=== PATIENT | female | born 1930 | race Caucasian/White ===

== ENCOUNTER 2016-12-19 12:13 | Inpatient (IN) | payer MEDICARE, OTHER ==
[~2016-12-19] VITALS: Ht 152.4 cm; Wt 79.7 kg
[~2016-12-19 12:13] MED LIST: AMLO5TAB2 PO; APIX5TAB PO; ATOR80TA PO; FUR20 PO; HYDR-4003 PO; LEVO750T39 PO; LISI-567 PO; LORA-302 PO; METF500T4 PO; METO100T3 PO; SITA50TA PO
[2016-12-20 08:17] VITALS: BP 115/67; PULSE 69; RESP 16; O2SAT 98
[2016-12-20 08:22] VITALS: PULSE 32
[2016-12-20] MEDS ORDERED: Polyethylene Glycol (PEG) 17 Gm Powder PO PRN (08:55)
[2016-12-20] MEDS ORDERED: Ondansetron 2 mg/mL 2 mL Inj IVPUSH PRN (08:55)
[2016-12-20] MEDS ORDERED: Alum-Mag Hydrox-Simeth 30 mL Suspension PO PRN (08:55)
[2016-12-20] MEDS ORDERED: Glucose 40% Oral Gel 15 Gm Tube PO PRN (09:10)
[2016-12-20] MEDS ORDERED: LORazepam 0.5 mg Tablet PO PRN (09:10)
--- NOTE | 2016-12-20 10:26 | HP ---
[address] [address] HISTORY AND PHYSICAL PATIENT: CLARISSA HERBERT : 1930 MR#: [id number] ADMIT: 12/20/2016 JOB ID: [id number] CHIEF COMPLAINT: Paroxysmal AFib with increasing AFib burden. 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 In terms of paroxysmal AFib, she has been unable to tolerate amiodarone in the past due to hyperthyroidism. She is on Eliquis and metoprolol tartrate 100 mg twice a day for stroke prevention. While on amiodarone, her AFib burden was 2% but lately, it has been steadily rising, was most recently 16% on her most recent device check. Generally, rate during AFib was controlled. Lately, she recalls experiencing some palpitations but no chest pain or chest pressure. She has asymptomatic aortic stenosis. Most recent echocardiogram April 24, 2016, showed worsening compared to prior study April 2015. Peak velocity stable around 4 m/sec. Mean gradient alon from 34 mmHg to 40 mmHg, and there was associated moderate posterolaterally directed mitral regurgitation. We had a nice conversation with her two daughters on December 17, 2016, to discuss the increased AFib burden and worsening symptoms. Also, if her aortic stenosis progresses, AFib is likely going to be worse and worse tolerated. After detailed conversation about risks, benefits and alternatives, we made the decision to proceed with sotalol load, and she is here today for her elective 72-hour monitoring. PAST MEDICAL HISTORY: 1. Paroxysmal AFib. 2. Tachybrady syndrome, status post dual-chamber permanent pacemaker implanted March 19, 2011. 3. Diabetes -- controlled. Most recent A1c 6.3% as of September 2016. 4. Hyperlipidemia -- controlled. Most recent total cholesterol September 2016, showed total cholesterol 156, triglycerides 115, HDL 70 and LDL 59. 5. Severe aortic stenosis -- asymptomatic. 6. Hyperthyroidism -- resolved after amiodarone was discontinued. 7. History of remote TIA in 2003. 8. Osteoarthritis. 9. 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 FAMILY HISTORY: Father of stroke at age 85. Mother of heart attack at age 87. She has eight children but one at age 19 from cancer. SOCIAL HISTORY: She is a lifetime nonsmoker. She is accompanied by her daughter today to clinic. ALLERGIES: PENICILLIN. HOME MEDICATIONS: 1. Lipitor 80 mg daily. 2. Metoprolol tartrate 200 mg twice a day. 3. Lisinopril 10 mg twice a day. 4. Lasix 20 mg daily. 5. Eliquis 5 mg twice a day. 6. Ativan 0.5 mg twice a day if needed for anxiety. 7. Amlodipine 10 mg daily. 8. Januvia 50 mg daily. 9. Metformin 500 mg in the morning, 200 mg at night. REVIEW OF SYSTEMS: She denies any bright red blood per rectum or hematuria. She reports fatigue, irregular heartbeat and anxiety. Otherwise, 10-point review of systems is negative. PHYSICAL EXAMINATION: Vital signs: Temperature 36.4, blood pressure 115/67, pulse 98% on room air. Very nice 86-year-old lady in no apparent distress. Eyes: No scleral icterus. Heart: Normal S1, S2. A 3/6 systolic ejection murmur at upper sternal border. Lungs: Clear anteriorly. Abdomen: Soft, positive bowel sounds. No hepatosplenomegaly. Extremities: Warm, well perfused. No clubbing, cyanosis, or edema. Skin: No rashes or lesions. LABORATORIES: Ordered and pending. Chest x-ray ordered and pending. EKG ordered and pending. Most recent outpatient CBC was in November 2015, and at that time it was normal. ASSESSMENT AND PLAN: This is a delightful 86-year-old woman with moderate aortic stenosis. She has progressive atrial fibrillation burden. She has been in atrial fibrillation on last device check for four days continuously which is unusual for her. Will go ahead and admit her for sotalol load and if needed, we can certainly cardiovert her if she remains in atrial fibrillation at the time of discharge. I think it is really important to try to keep her away from atrial fibrillation as much as possible, given progressive aortic stenosis. The patient voiced understanding. I ordered all of her home meds but I reduced her metoprolol tartrate from 200 mg twice a day to 100 mg twice a day. I also changed her metformin from 500 mg in the morning and 250 at night to just 500 mg once a day.
[2016-12-20 11:03] LABS: BASOPHILS % (AUTO) 0.3 % (0-3); EOSINOPHILS % (AUTO) 0.8 % (0-5); MONOCYTES % (AUTO) 10.3 % (4-12); Mean Corpuscular Hemoglobin 29.8 pg (27.0-35.0); Mean Corpuscular Volume 90.5 fL (81-100); NEUTROPHILS % (AUTO) 67.9 % (40-74); Platelet Count 286 bil/L (150-400)
--- NOTE | 2016-12-20 11:15 | DRSVH ---
PROCEDURE: X-RAY CHEST, TWO VIEWS ([id number]) INDICATIONS: afib TECHNIQUE: 2 views of the chest were acquired. COMPARISON: None. FINDINGS: Surgical changes and devices: Stable positioning of left cardiac pacer. Cholecystectomy clips. Lungs and pleura: No pleural effusions or pneumothorax. Lungs are clear. Hiatal hernia redemonstra joaquin. Lung volumes are increased with flattening of the hemidiaphragms suggesting COPD. Mediastinum: Mediastinal contours are normal. Heart size is enlarged. Bones and chest wall: No suspicious bony abnormalities. Soft tissues appear unremarkable. IMPRESSION: Lung volumes are increased suggesting COPD, correlate with pulmonary functions test. Dictated by: Beka Arguelles RRA Interpreted: Katherine Cedeno MD on 12/20/2016 at 11:14 Transcribed by: MERCEDES on 12/20/2016 at 11:15 Approved by: Katherine Cedeno MD, PhD on 12/20/2016 at 16:48
[2016-12-20 11:25] LABS: Magnesium 2.1 mg/dL (1.6-2.6)
[2016-12-20 11:43] LABS: APPEARANCE,URINE HAZY (CLEAR,HAZY); COLOR,URINE STRAW (YELLOW); OCCULT BLOOD,URINE TRACE (NEGATIVE); UROBILINOGEN,URINE NORMAL (NORMAL)
[2016-12-20] MEDS: Insulin LISPRO 300 Unit/3 mL Inj SUBQ SCH ×3 (12:00→22:30)
[2016-12-20 12:02] VITALS: BP 110/56; PULSE 73; RESP 16; O2SAT 99
[2016-12-20 16:48] VITALS: BP 105/64; PULSE 69; RESP 16; O2SAT 98
--- NOTE | 2016-12-20 18:09 | NUR ---
Arrived to unit/Sotalol Pt arrived to [facility] room 2021 at ~0810 direct admit for Sotalol loading, Dr. Funk made aware of Pt's arrival. Pt denied pain, A&Ox3. Pt received first dose of Sotalol after baseline EKG acquired and QTc 427. EKG ordered for 2 hours after am dose given, f/u EKG showed a QTc of 437.
[2016-12-20 20:08] VITALS: BP 101/63; PULSE 63; RESP 17; O2SAT 97
[2016-12-21] VITALS (9 sets, daily range): BP systolic 108–138; BP diastolic 58–74; PULSE 60–63; RESP 16–20; O2SAT 90–99
--- NOTE | 2016-12-21 04:44 | NUR ---
Tele, Sotalol Vs as noted. Tele V paced with hr 60-70. Sotalol with follow up EKG QTc 0.439. Denies chest pain or discomforts. Up independently.
[2016-12-21] MEDS: Insulin LISPRO 300 Unit/3 mL Inj SUBQ SCH ×4 (08:00→19:49)
--- NOTE | 2016-12-21 12:34 | PROG NOTE ---
[address] [address] PROGRESS NOTE PATIENT: CLARISSA HERBERT : 1930 MR#: [id number] ADMIT: 12/20/2016 JOB ID: [id number] DATE: 12/21/2016 CHIEF COMPLAINT: Episodic palpitations from atrial fibrillation. SUBJECTIVE: The patient is a delightful 86-year-old woman with a history of paroxysmal atrial fibrillation and tachycardia/bradycardia syndrome who has been treated previously with amiodarone and a dual-chamber cardiac pacemaker. She is also known to have severe but asymptomatic aortic stenosis, hypertension, hyperlipidemia and diabetes. When amiodarone led to hyperthyroidism, it was stopped and her atrial fib burden, as identified by her pacemaker, gradually increased from 2% up to 16%. She was admitted yesterday for starting sotalol for treatment of atrial fibrillation. On admission, she was in atrial fibrillation with ECG showing ventricular pacing. The atrial fib self-terminated sometime after the second dose of sotalol. This morning she has no complaints and has been ambulatory without difficulty. She denies shortness of breath, lightheadedness, or chest discomfort. OBJECTIVE: Pertinent lab data from yesterday showed potassium 4.8, creatinine 0.99 and magnesium 2.1. Her baseline ECG prior to sotalol showed ventricular pacing mixed with conducted ventricular rhythm during atrial fibrillation, average rate 73 bpm, QT 387 msec and QTc 427 msec. This morning 2 hours after her third dose of sotalol she is in sinus rhythm with atrial pacing and conduction to the ventricles. The rate is 62, QT 417 and QTc 424 msec. Vital signs: BP 122/63, pulse 61, pulse oximetry 98% on room air. Brief physical exam, she is alert and appropriate in conversation, pulse rhythm is regular and the 3/6 systolic ejection murmur remains present. Breath sounds are clear, abdomen with positive bowel sounds and no tenderness, extremities are warm, pulses intact and there is no edema or rashes. ASSESSMENT AND PLAN: The patient is tolerating the sotalol at 80 mg b.i.d. well. She has returned to sinus rhythm, and her QT interval is essentially unchanged from that prior to sotalol. She denies any side effects from the medication. The plan will be to continue sotalol 80 mg b.i.d. with 12-lead ECG recorded 2 hours after each dose. We will anticipate discharging her home tomorrow morning around noon after the fifth dose of sotalol and the ECG.
--- NOTE | 2016-12-21 13:51 | NUR ---
Social work note - Initial assessment Nalini Berger is a 86 yr old who was admitted under cardiology for Sotalol loading. EMR reviewed: Pt has Medicare and [employer] insurance. Her PCP is Dr Benitez. Readmit score is high 4/8 P's. See attached CM initial assessment. MEDICINE MAN met with pt - introduced d/c planning and explained SW role. Pt lives at home with her daughter in [place]. She is independent at baseline. Uses a 4[employer], does not drive. She states that her daughter Velvet Michelle is her DPOA - [phone]. No DPOA in chart. MEDICINE MAN provided education about importance of bringing in paperwork - Pt states she will ask family to bring it in. Pt states she plans to d/c home with family. No previous services, denies any needs. Pt is up independent in room and IADL. MEDICINE MAN will follow if needs arise. Plan: Home with family in [facility]. DAWIT Hooker Addendum: 12/21/16 at 1356 by CLAIRE PABLO SS Amended: Links added.
--- NOTE | 2016-12-21 19:17 | NUR ---
Sotalol Pt reports no changes in how she feels since admit, Sotalol dose given this am at ~0900 and EKG obtained ~2 hours after dose administered, QTc 424 on EKG reading, SELVIN Dallas viewed EKG reading, care ongoing.
--- NOTE | 2016-12-21 22:46 | NUR ---
SOTALOL LOADING/EKG Pt A&Ox3, able to make needs known, indep. in the room with walker, no pain. Pt was given 80mg Sotalol, 2 hours post medication an EKG was done, QTc 458, orders to notify MD if over 500. Rate 60, atrial-paced rhythm, left ventricular hypertrophy. No other issues noted at this time.
[2016-12-22 03:07] VITALS: BP 120/67; PULSE 55; RESP 20; O2SAT 93
[2016-12-22 06:10] VITALS: PULSE 62
[2016-12-22] MEDS: Insulin LISPRO 300 Unit/3 mL Inj SUBQ SCH (08:00)
[2016-12-22 08:57] VITALS: BP 137/72; PULSE 60; RESP 16; O2SAT 98
[2016-12-22 10:17] VITALS: PULSE 61
--- NOTE | 2016-12-22 11:32 | PCM.DIMED ---
Discharge Instructions Date of Service Dec 22, 2016 Dates of Hospitalization Dec 20, 2016 at 08:12 Discharge Diagnosis Discharge Diagnosis Paroxysmal Atrial Fibrillation Tachycardia / Bradycardia Syndrome Dual Chamber Pacemaker Severe but asymptomatic Aortic Stenosis Hypertension Diabetes Diet Heart Healthy, Diabetic Activity No restrictions Call your provider Other (Fainting or near fainting) Patient Instructions Provider: Samia Funk MD Follow-up in: 6 weeks (Please call the [facility] Cardiology office at [phone] to make the appointment.) Darrius Dallas PA-C Dec 22, 2016 11:32
[2016-12-22] MEDS ORDERED: BET80 PO (11:50)
[2016-12-22] MEDS ORDERED: METO100T3 PO (11:50)
--- NOTE | 2016-12-22 13:32 | NUR ---
Discharge Pt discharge to home after Sotalol dose and f/u EKG today. Pt left with family at ~1240. Pt given discharge educational materials on Sotalol. Pt's IV access D/C'd and intact. Pt instructed to call cardiology for f/u appointment tomorrow, phone number supplied. Pt verbalized understanding of all discharge instructions. All belongings accompanied Pt at time of discharge.
--- NOTE | 2016-12-22 19:26 | DIS ---
[address] [address] DISCHARGE SUMMARY PATIENT: CLARISSA HERBERT : 1930 MR#: [id number] ADMIT: 12/20/2016 JOB ID: [id number] DIS: 12/22/2016 CHIEF COMPLAINT: Palpitations from atrial fibrillation. BRIEF HISTORY: This is a delightful 86-year-old woman with a history of paroxysmal atrial fibrillation and tachycardia bradycardia syndrome who currently has a dual-chamber cardiac pacemaker. She had been treated with amiodarone for some time but became hyperthyroid and amiodarone was stopped. Her symptoms of atrial fibrillation as measured by the pacemaker increased from 2% up to 16%, and she has been more symptomatic, of course. She was admitted for antiarrhythmic therapy with sotalol for atrial fibrillation. COURSE IN HOSPITAL: The patient was admitted to the [facility] and after baseline ECG and lab data were obtained she was started on sotalol 80 mg b.i.d. After the second dose of sotalol, she converted spontaneously from atrial fibrillation back to sinus rhythm and has been receiving atrial pacing. She has tolerated the new medication well and has no complaints of any side effects of fatigue or GI upset or lightheadedness. Her QT and QTc intervals have remained within the 15% increase allowable with sotalol. She has not had any complex ventricular ectopy or nonsustained VT on the cardiac cardiac monitor technician. She feels well for discharge home. DISPOSITION: The patient was discharged home in good condition with a followup appointment at the [facility] cardiology office with Dr. Funk in one month. She will have no activity restrictions and will continue her heart healthy and diabetic diet. DISCHARGE MEDICATIONS: 1. Amlodipine 5 mg daily. 2. Eliquis 5 mg b.i.d. 3. Lipitor 80 mg q.h.s. 4. Furosemide 20 mg daily. 5. Lisinopril 10 mg b.i.d. 6. Lorazepam 0.5 mg b.i.d. p.r.n. 7. Metformin 500 mg daily. 8. Metoprolol tartrate, dose now reduced to 100 mg b.i.d. 9. Sitagliptin 50 mg daily. 10. Sotalol 80 mg b.i.d. FINAL DIAGNOSES: 1. Paroxysmal atrial fibrillation. 2. Tachycardia/bradycardia syndrome. 3. Dual-chamber cardiac pacemaker. 4. Severe, asymptomatic aortic stenosis. 5. Hypertension. 6. Diabetes.
== END 2016-12-22 13:30 | disposition home or self-care (01) | DRG 310 ==
LOC: PCC 12-20 08:12
PROVIDERS: ADMIT Internal Medicine; ATTEND Internal Medicine
DX: I48.0 Paroxysmal atrial fibrillation (principal); Z95.0 Presence of cardiac pacemaker; I35.0 Nonrheumatic aortic (valve) stenosis; Z86.73 Personal history of transient ischemic attack (TIA), and cerebral infarction without residual deficits

== ENCOUNTER → 2017-08-06 | Day surgery (SDC) | payer MEDICARE, OTHER ==
[2017-08-06] VITALS (13 sets, daily range): BP systolic 109–126; BP diastolic 40–71; PULSE 60; RESP 12–19; O2SAT 93–96
[~2017-08-06] VITALS: Ht 152.4 cm; Wt 76.0 kg
[~2017-08-06] MED LIST changes: +0.9% Sodium Chloride 1,000 ML IV SCH; +0.9% Sodium Chloride 250 ML IV PRN; +AMLO10TA3 PO; -AMLO5TAB2 PO; +Atropine 1 mg/10 mL (Code) Syringe IVPUSH PRN; -HYDR-4003 PO; +HYDROcodone-APAP 5-325 mg Tablet PO PRN; +Heparin 1,000 Unit/mL 10 mL Inj ONE; +Heparin 1,000 Units/500 mL NS Premix IV ONE; +Heparin 10,000 Unit/1,000 mL NS Premix IV ONE; -LEVO750T39 PO; +Ondansetron 2 mg/mL 2 mL Inj IVPUSH PRN; +SOTA80TA PO; +fentaNYL-PF 50 mCg/mL 2 mL Inj ONE
--- NOTE | 2017-08-06 15:26 | NUR ---
Post Cath: Received pt from cardiac cath lab technologist to [facility] bed 8 at 1455. R groin gauze dressing C/D/I, no c/o pain, VSS on RA. Tolerating po intake. Pt's daughters at bedside. R pedal pulse palpable +2. Pt states understanding of post procedure bedrest restrictions.
--- NOTE | 2017-08-06 15:50 | CS94 ---
[address] [address] DIAGNOSTIC CARDIAC CATHETERIZATION PATIENT: CLARISSA HERBERT : 1930 MR#: [id number] ADMIT: 08/06/2017 JOB ID: [id number] SERVICE DATE: 08/06/2017 CHIEF COMPLAINT: Severe aortic stenosis. PROCEDURE PERFORMED: 1. Right common femoral artery vascular access under ultrasound guidance. 2. Right common femoral artery angiogram. 3. Left heart catheterization-selective coronary angiograms. HEMOSTASIS: Via manual hold. METHOD: Following informed consent, the patient was prepped and draped in the usual sterile fashion. A 6-Greek sheath was placed in the right common femoral artery. Sheath placement was confirmed via femoral angiogram. JL-4, JR-4 catheters were used to engage left main and right coronary artery ostia respectively. Hand injection craniocaudal angulation was used to obtain selective coronary angiograms. I did not cross the aortic valve, which is severely calcified and stenotic. FINDINGS: Left main is a normal vessel. Gives rise to LAD, circumflex and ramus intermedius. No obstructive lesions are seen. There is excellent blow back and no dampening on engagement. Left anterior descending wraps around the apex. It gives rise to a first big bifurcating diagonal branch, and multiple septal perforators. No obstructive lesions are seen. Circumflex is a codominant vessel. It gives rise to medium first OM, medium second OM, medium third OM and a small fourth OM. No obstructive lesions. Right coronary artery is a codominant vessel. It gives rise to the PDA and medium posterior lateral branch. No obstructive lesions are seen. Femoral angiogram: Right common femoral artery gives rise to SFA and profunda. The sheath enters the femoral artery at the lower third of the femoral head. No evidence of contrast extravasation or dissection. IMPRESSION: No obstructive disease PLAN: 1. Restart Eliquis August 09 for paroxysmal Afib. 2. Will start metformin August 09. Otherwise the patient to continue all her current medications as they are. Thank you very much for the opportunity to participate in this patient's care. BILL
--- NOTE | 2017-08-06 19:15 | NUR ---
Discharge: Pt d/c'd home at 1914. R groin with gauze dressing with tegaderm dressing C/D/I, no c/o pain in groin, R pedal pulse +2. Pt states understanding of d/c instructions and medications. Pt given cath report per Dr. Funk request for appt tomorrow at . Pt left unit with all of her belongings with her daughter at 1914.
== END | disposition home or self-care (01) ==
LOC: SOUO 00:33
PROVIDERS: ATTEND Internal Medicine
DX: I35.0 Nonrheumatic aortic (valve) stenosis (principal); I48.0 Paroxysmal atrial fibrillation; Z79.01 Long term (current) use of anticoagulants; I49.5 Sick sinus syndrome; Z79.899 Other long term (current) drug therapy; E11.9 Type 2 diabetes mellitus without complications; I10 Essential (primary) hypertension; E05.90 Thyrotoxicosis, unspecified without thyrotoxic crisis or storm; Z79.84 Long term (current) use of oral hypoglycemic drugs; Z95.0 Presence of cardiac pacemaker
CPT/HCPCS: 93005; 93454; 99152; 99153; C1769; J1200; J1644; J2060; J2250; J3010; J7030; Q9967